=== PATIENT | male | born 1965 | race Caucasian/White ===

== ENCOUNTER 2019-10-25 08:38 | Outpatient (CLI) | payer BC, SELFPAY ==
--- NOTE | 2019-10-25 09:00 | EST_ITS ---
Patient Info Name: Boris Bautista Age: 54 years : 1965 Gender: Male Ht: 65 in Wt: 170 lbs BSA: 1.90 m2 Exam Date: 10/25/2019 9:09 AM Exam Location: [facility] Room: stress lab Patient Status: Outpatient Admit Date: 10/25/2019 Staff Ordering Physician: Pan Purcell DO Medical Office Technologist: Cuong Márquez RDCS, RT Attending Provider: PAN PURCELL Referring Physician: Ham BROWNING; Exercise Technologist: Cuong Márquez RDCS, RT Exercise Physician: Pan Purcell DO Exam Type: CA stress echo Study Info Indications R07.89 - Other chest pain Treadmill exercise stress echocardiogram is performed. Summary 1. 1. Negative Aryan exercise stress test for ischemic ST changes by ECG criteria. 2. 2. Good functional capacity, achieving 12 METs of workload. 3. 3. Appropriate HR response to exercise. 4. 4. Appropriate HR recovery at 1 minute post exercise. 5. 5. Negative stress echocardiogram for ischemia by wall motion analysis. 6. 6. Patient informed of the above results. Stress Echo Findings Left Ventricle Appropriate increase in LV endocardial thickening with systole. Appropriate augmentation of contractility with systole. No wall motion abnormality. Left Ventricle Normal LV systolic function, no wall motion abnormality. Protocol: Aryan Stress ECG Details Stage: REST Duration (min): 0 min : 11 sec Speed (mph): 0.0 Grade (%): 0 HR (bpm): --- SBP (mmHg): --- DBP (mmHg): --- METS: --- Stage: REST Duration (min): 15 min : 52 sec Speed (mph): 0.0 Grade (%): 0 HR (bpm): 60 SBP (mmHg): 109 DBP (mmHg): 78 METS: --- Stage: STAGE 1 Duration (min): 1 min : 0 sec Speed (mph): 1.7 Grade (%): 10 HR (bpm): 80 SBP (mmHg): 109 DBP (mmHg): 78 METS: --- Stage: STAGE 1 Duration (min): 2 min : 0 sec Speed (mph): 1.7 Grade (%): 10 HR (bpm): 81 SBP (mmHg): 109 DBP (mmHg): 78 METS: --- Stage: STAGE 1 Duration (min): 3 min : 0 sec Speed (mph): 1.7 Grade (%): 10 HR (bpm): 80 SBP (mmHg): 114 DBP (mmHg): 79 METS: --- Stage: STAGE 2 Duration (min): 1 min : 0 sec Speed (mph): 2.5 Grade (%): 12 HR (bpm): 95 SBP (mmHg): 114 DBP (mmHg): 79 METS: --- Stage: STAGE 2 Duration (min): 2 min : 0 sec Speed (mph): 2.5 Grade (%): 12 HR (bpm): 96 SBP (mmHg): 128 DBP (mmHg): 81 METS: --- Stage: STAGE 2 Duration (min): 3 min : 0 sec Speed (mph): 2.5 Grade (%): 12 HR (bpm): 95 SBP (mmHg): 128 DBP (mmHg): 81 METS: --- Stage: STAGE 3 Duration (min): 1 min : 0 sec Speed (mph): 3.4 Grade (%): 14 HR (bpm): 113 SBP (mmHg): 149 DBP (mmHg): 75 METS: --- Stage: STAGE 3 Duration (min): 2 min : 0 sec Speed (mph): 3.4 Grade (%): 14 HR (bpm): 123 SBP (mmHg): 149 DBP (mmHg): 75 METS: --- Stage: STAGE 3 Duration (min): 3 min : 0 sec Speed (mph): 3.4 Grade
== END 2019-10-25 08:39 | disposition home or self-care (01) ==
PROVIDERS: PCP Internal Medicine; Visit Provider Internal Medicine Cardiovascular Disease
DX: R07.89 Other chest pain (principal)
CPT/HCPCS: 93351

== ENCOUNTER → 2021-08-08 00:18 | Outpatient (CLI) | payer BC, SELFPAY ==
[2021-08-08 13:27] LABS: SARS-CoV-2 RNA PCR Negative
== END ==
PROVIDERS: PCP Nurse Practitioner Family; Visit Provider Internal Medicine Gastroenterology
DX: Z01.812 Encounter for preprocedural laboratory examination (principal); Z20.822 Contact with and (suspected) exposure to COVID-19
CPT/HCPCS: C9803; U0003; U0005

== ENCOUNTER 2021-08-11 01:19 | Day surgery (SDC) | payer BC, SELFPAY ==
[2021-08-03 14:25] VITALS: BMI 28.2
[2021-08-11 09:40] VITALS: BP 122/87; PULSE 65; RESP 20; TEMP 36.1; O2SAT 100; BMI 27.2
[2021-08-11] MEDS: LACTATED RINGERS 1,000 ML 150 ML IV CONT (09:53)
--- NOTE | 2021-08-11 10:05 | WPDGICN ---
Assessment and Plan Assessment and plan (1) LUQ pain: Code(s): R10.12 - Left upper quadrant pain Status: Acute Assessment and Plan: Patient has ongoing vague left upper quadrant pain for this reason EGD will be performed further recommendations will be given after endoscopy. (2) Abnormal CT scan, colon: Code(s): R93.3 - Abnormal findings on diagnostic imaging of other parts of digestive tract Status: Acute Assessment and Plan: CT scan suggests thickening of the right colon and sigmoid colon for this reason colonoscopy will be performed. Also to have evaluate for potential etiologies to his discomfort. Further recommendations will be given after endoscopy. GI Consult Note Consult date/time: 08/11/21 10:05 HPI: Boris Bautista is a 56 year old male Presents for GI endoscopy. Patient has rather vague left side left upper quadrant discomfort. This has been present since before April. He states that is somewhat difficult to describe. Not particularly burning. It does not change with eating. Not related to bowel habits. CT scan performed in April revealed some questionable thickening of the right colon as well as sigmoid colon patient presents today for endoscopy because of ongoing discomfort. States that may have eased somewhat over the last 2 months. He denies any weight loss or bleeding. Review of Systems Review of Systems: All systems reviewed & are unremarkable except as noted in HPI and below PMFSH Past Medical History Medical History Hypothyroidism, unspecified IBS (irritable bowel syndrome) Lateral epicondylitis of right elbow Mixed hyperlipidemia Right elbow pain Skin lesion Vision abnormalities Surgical History Surgical History History of arthroscopic surgery of shoulder 2009 History of laparoscopic cholecystectomy 2011 History of nasal surgery 1983 Family History Family History Mother Cerebrovascular accident Father Family history of heart disease in male family member before age 55 Family history of cardiovascular disease Unknown Cerebrovascular accident HLD (hyperlipidemia) Social History Social History Tobacco type: cigarettes Second hand tobacco smoke exposure: No Alcohol intake: current Drinks per week: 2 Alcohol use details: beer Substance use: never Substance use type: does not use Living arrangements: with family Spiritual care concerns: No Meds Home Medications and Allergies Home Medications Medication Instructions Recorded Confirmed Type levothyroxine 137 mcg tablet 137 mcg PO DAILY #90 tablet 03/21/20 08/03/21 Rx Allergies Allergy/AdvReac Type Severity Reaction Status Date / Time No Known Allergies Allergy Verified 08/11/21 09:39 Vital Signs Vital Signs - 24 hr 08/11/21 09:40 Temperature 97.0 F L Pulse Rate 65 Respiratory Rate 20 Blood Pressure 122/87 Pulse Oximetry 100 Exam Narrative: Physical exam reveals patient to be alert. Vital signs stable. HEENT exam is unremarkable. Patient is anicteric. Lungs are clear to auscultation and percussion. Heart is without murmur or extra sounds. Abdominal exam bowel sounds are present soft nontender with no organomegaly. Digital external rectal exam is normal.
--- NOTE | 2021-08-11 10:30 | P.PNAN_ITS ---
Anes - Initial Pre Proc Eval Procedure: Operation Date: 08/11/21 11:00 Proposed Procedures p Esophagogastroduodenoscopy & Screening Colonoscopy - Shahbaz Ariza MD Date/Time: 08/11/21 10:30 Surgeon: Shahbaz Ariza MD Pre Op Diagnosis: neoplasm screening, left upper quadrant pain Patient Data Age: 56 Gender: M Height: 1.65 m Weight: 74.2 kg Last Vital Signs Temp 97.0 F L 08/11/21 09:40 Pulse 65 08/11/21 09:40 Resp 20 08/11/21 09:40 BP 122/87 08/11/21 09:40 Pulse Ox 100 08/11/21 09:40 Allergies Allergy/AdvReac Type Severity Reaction Status Date / Time No Known Allergies Allergy Verified 08/11/21 09:39 Home Medications Medication Instructions Recorded Confirmed Type levothyroxine 137 mcg tablet 137 mcg PO DAILY #90 tablet 03/21/20 08/03/21 Rx Patient hx anesthesia problems: none Family hx anesthesia problems: none Results Review: All pre-operative results and documents have been reviewed as part of the pre-operative evaluation. COUNT INCLUDES THE [facility] Past Medical History Medical History Hypothyroidism, unspecified IBS (irritable bowel syndrome) Lateral epicondylitis of right elbow Mixed hyperlipidemia Right elbow pain Skin lesion Vision abnormalities Surgical History Surgical History History of arthroscopic surgery of shoulder 2009 History of laparoscopic cholecystectomy 2011 History of nasal surgery 1983 Family History Family History Mother Cerebrovascular accident Father Family history of heart disease in male family member before age 55 Family history of cardiovascular disease Unknown Cerebrovascular accident HLD (hyperlipidemia) Social History Social History Tobacco type: cigarettes Second hand tobacco smoke exposure: No Alcohol intake: current Drinks per week: 2 Alcohol use details: beer Substance use: never Substance use type: does not use Living arrangements: with family Spiritual care concerns: No Anes - Eval Final PreProcedure Day of Procedure 08/11/21 10:30 Patient weight: normal Heart: regular rate and rhythm Lungs: clear to auscultation Airway: Mallampati scale class II Neurological: alert and oriented Last oral intake: >/= 8 hours ASA classification: II Emergent: no Anesthetic plan: proceed Anesthesia type and monitoring: general GIVS and standard monitoring Results Review: All pre-operative results and documents have been reviewed as part of the pre-operative evaluation. Informed Consent: The patient's anesthetic plan and its attendant risks and benefits were discussed with the patient/family/POA. Questions were solicited and answers provided to the satisfaction of the patient/family/POA.
[2021-08-11] MEDS: BENZOCAINE (*SP) 60 ML SPRAY CAN (HURRICAINE) 1 SPRAY MUCOUS MEM (10:37)
--- NOTE | 2021-08-11 10:48 | SUR.OPER ---
EGD ENDED AT 1041, COLONOSCOPY BEGAN AT 1047.
[2021-08-11 11:01] VITALS: BP 101/66; PULSE 75; RESP 14; O2SAT 97
[2021-08-11 11:11] VITALS: BP 94/68; PULSE 60; RESP 12; O2SAT 100
[2021-08-11 11:21] VITALS: BP 118/87; PULSE 56; RESP 15; O2SAT 100
== END 2021-08-11 11:28 | disposition home or self-care (01) ==
PROVIDERS: PCP Nurse Practitioner Family; Visit Provider Internal Medicine Gastroenterology
PROC: 0DJ08ZZ Inspection of Upper Intestinal Tract, Via Natural or Artificial Opening Endoscopic (ICD-10-PCS; CPT 43235; principal; 2021-08-11 11:00)
DX: Z12.11 Encounter for screening for malignant neoplasm of colon (principal); R10.12 Left upper quadrant pain; R93.3 Abnormal findings on diagnostic imaging of other parts of digestive tract; E03.9 Hypothyroidism, unspecified
CPT/HCPCS: 45378; 43239; 87081; J2704; J7120

== ENCOUNTER → 2021-09-01 15:36 | Outpatient (REF) | payer BC, SELFPAY | LOC: ANHLAB 15:36 | PROVIDERS: PCP Nurse Practitioner Family; Visit Provider Nurse Practitioner | DX: L98.9 Disorder of the skin and subcutaneous tissue, unspecified (principal) | CPT/HCPCS: 88305 ==

== ENCOUNTER → 2021-11-05 13:52 | Outpatient (REF) | payer BC, SELFPAY | LOC: ANHLAB 13:52 | PROVIDERS: PCP Nurse Practitioner Family; Visit Provider Surgery Plastic and Reconstructive Surgery | DX: D49.2 Neoplasm of unspecified behavior of bone, soft tissue, and skin (principal) | CPT/HCPCS: 88305 ==

== ENCOUNTER 2021-11-20 07:55 | Outpatient (CLI) | payer BC, SELFPAY ==
--- NOTE | ~2021-11-20 | MR_ITS ---
EXAMINATION: MR elbow RT wo con DATE: 11/20/2021 08:51 INDICATION: Right elbow pain TECHNIQUE: Magnetic resonance imaging (MRI) of the right elbow was performed without intravenous cont rast. Sequences included coronal, axial, and sagittal PD-weighted FS FSE and coronal, axial, and sagi ttal PD-weighted FSE. COMPARISON: None FINDINGS: Osseous/other: Normal alignment. Normal marrow signal with no marrow edema, fracture, osteochondral lesion or abnor mal marrow replacing process. Tendons: Triceps and brachialis tendons are normal. Moderate tendinopathy at the distal biceps brachii tendon without tear. Mild tendinopathy of the common extensor tendon wad with partial thickness avulsion and approximately 1 cm distal retraction of a central portion of the tendon. The torn portion of the ten don constitutes approximately one third of the cross-sectional area. The common flexor tendon wad is normal. Ligaments: The medial and lateral collateral ligament complexes are normal. Cubital tunnel: Cubital tunnel is unremarkable with normal signal and caliber of the ulnar nerve. Fluid: Physiologic amount of fluid the elbow joint. IMPRESSION: 1. Mild tendinopathy and partial thickness avulsion of a portion of the common extensor tendon wad. 2. Moderate tendinopathy without discrete tear at the insertion of the biceps brachii tendon. Reviewed, dictated and finalized at location D. IMPRESSION: 1. Mild tendinopathy and partial thickness avulsion of a portion of the common extensor tendon wad. 2. Moderate tendinopathy without discrete tear at the insertion of the biceps b rachii tendon.
== END 2021-11-20 07:56 | disposition home or self-care (01) ==
PROVIDERS: PCP Nurse Practitioner Family; Visit Provider Nurse Practitioner Family
DX: M25.521 Pain in right elbow (principal)
CPT/HCPCS: 73221

== ENCOUNTER 2021-12-17 01:22 | Day surgery (SDC) | payer BC, SELFPAY ==
[2021-12-16 08:19] VITALS: BMI 27.4
--- NOTE | 2021-12-16 08:27 | PC.NURSE ---
Report to the Outpatient Waiting Room, entrance under the green pavilion located off [facility], at time 0600 on date 12/17/21. OR Time: 0730. - You and your visitor will be asked a series of questions to screen for COVID 19 for your protection. - Only one visitor is allowed at this time. - The patient visitor is requested to leave or wait in car when not with patient. - A mask is required within the hospital. Patients may have clear liquids (water, carbonated beverages, clear teas, apple juice) until 3 hours prior to surgery with a maximum of 20 ounces. - No food from midnight until time of surgery Take the following medications with a SIP of water the morning of surgery: LEVOTHYROXINE Medications to discontinue per physician: MELOXICAM Date to take last dose: CALL DR. PICHARDO Please no make-up, nail chilean, hairspray, perfume, deodorant, or body powder the day of surgery. No jewelry (including any body piercings) or valuables the day of surgery, leave them at home. Please take a shower or bath the night before, or the morning of, surgery with an antibacterial soap. Wear comfortable, loose fitting clothing. - Jewelry must be removed prior to entering the operating room. Rings and piercings that are not removed may be cut off. - The hospital will not accept responsibility for valuables. - Please leave all valuables, including medications, at home the day of surgery. If you are going home after surgery, a licensed emergency detail driver must drive you home. - NO public transportation without another adult. - We recommend that an adult stay with you for 24 hours following discharge. - We also recommend that you do not drive, make important decision, drink alcoholic beverages, or take any drugs that were not prescribed by your health care provider for at least 24 hours after your discharge time. Follow any additional instructions given to you from your surgeon. If you or anyone in your household have experienced Covid symptoms in the past week, please notify your surgeon or the nurse liaison at the phone number below for possible testing. Telephone instructions given to PT - CHARISSE PLEITEZ and asked if any additional questions and then verbalized understanding. Patient advised to call surgeon office or pre surgery nurse liaison [phone] if any additional questions.
--- NOTE | 2021-12-16 13:42 | WPDANESEPPF ---
Anes - Initial Pre Proc Eval Procedure: Operation Date: 12/17/21 07:30 Proposed Procedures p Right Elbow Lateral Release - Jono Calderón MD Date/Time: 12/16/21 13:42 Surgeon: Jono Calderón MD Pre Op Diagnosis: right elbow lateral epicondylitis Patient Data Age: 56 Gender: M Height: 1.65 m Weight: 74.84 kg Allergies Allergy/AdvReac Type Severity Reaction Status Date / Time No Known Allergies Allergy Verified 12/17/21 06:30 Home Medications Medication Instructions Recorded Confirmed Type levothyroxine 137 mcg tablet 137 mcg PO DAILY #90 tabs 03/21/20 12/17/21 Rx meloxicam 15 mg tablet 15 mg PO DAILY PRN Pain 12/16/21 12/17/21 History Patient hx anesthesia problems: none Family hx anesthesia problems: none Results Review: All pre-operative results and documents have been reviewed as part of the pre-operative evaluation. [facility] Past Medical History Medical History Biceps tendinopathy Hypothyroidism, unspecified IBS (irritable bowel syndrome) Lateral epicondylitis of right elbow Mixed hyperlipidemia Partial tear of common extensor tendon of elbow Right elbow pain Skin lesion Vision abnormalities Surgical History Surgical History History of arthroscopic surgery of shoulder 2009 History of laparoscopic cholecystectomy 2011 History of nasal surgery 1982 Family History Family History Mother Cerebrovascular accident Father Family history of heart disease in male family member before age 55 Family history of cardiovascular disease Unknown Cerebrovascular accident HLD (hyperlipidemia) Social History Social History Smoking status: Former smoker Tobacco type: cigarettes Second hand tobacco smoke exposure: No Smoking end date: 05/30/99 Additional smoking assessment comments: NOT AN EVERYDAY SMOKER Alcohol intake: current Drinks per week: 5 Alcohol use details: beer Substance use: never Substance use type: does not use Living arrangements: with family Spiritual care concerns: No Anes - Eval Final PreProcedure Day of Procedure 12/16/21 13:42 Patient weight: normal Heart: regular rate and rhythm Lungs: clear to auscultation Airway: Mallampati scale class II Neurological: alert and oriented Last oral intake: >/= 8 hours ASA classification: II Emergent: no Anesthetic plan: proceed Anesthesia type and monitoring: general LMA and standard monitoring Results Review: All pre-operative results and documents have been reviewed as part of the pre-operative evaluation. Informed Consent: The patient's anesthetic plan and its attendant risks and benefits were discussed with the patient/family/POA. Questions were solicited and answers provided to the satisfaction of the patient/family/POA.
[2021-12-17] VITALS (9 sets, daily range): BP systolic 112–140; BP diastolic 84–93; PULSE 50–62; RESP 10–16; TEMP 36.1; O2SAT 98–100
[2021-12-17] MEDS: LACTATED RINGERS 1,000 ML 30 ML IV CONT (06:46)
[2021-12-17] MEDS: ACETAMINOPHEN 500 MG TABLET 1000 MG PO (06:47)
[2021-12-17] MEDS: KETOROLAC 15 MG/ML VIAL (*BKC) IV PUSH (06:49)
--- NOTE | 2021-12-17 06:51 | WPDHPUPDATE1 ---
History and Physical Update Update Date/Time: 12/17/21 06:51 History and Physical has been reviewed, including an updated exam of the patient. There are NO changes in the patient's condition. Risks, benefits, and alternatives have been discussed and questions answered. Patient agrees to proceed with procedure.
[2021-12-17] MEDS: ceFAZolin 2 GM/D5W 50 ML 2 GM/50 ML BAG IVPB (07:27)
[2021-12-17] MEDS: BUPIVACAINE HCL 0.5% PF 30 ML VIAL INFILTRATE (07:52)
--- NOTE | 2021-12-17 08:31 | W.PM.PROC2 ---
Procedure Note - Detailed Date of Procedure 12/17/21 Pre-op Diagnosis right elbow lateral epicondylitis Post-op Diagnosis Same Procedure Performed Debridement right lateral elbow with release. 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 MRI findings show partial tear of the ECRB and degenerative changes of the lateral epicondyle. Failed conservative treatment with therapy, bracing and injections. Presents for operative treatment. Findings Partial tear of the ECRB right lateral elbow. Description of Procedure Patient identified in the preoperative holding. Informed consent given. Operative extremity marked. Patient received intravenous antibiotics. Patient brought to the operating room where underwent general anesthetic by anesthesia team. Positioned supine on operating room table. Time-out performed confirming the patient, site of the surgery and the plan. Right elbow prepped and draped usual sterile surgical fashion using ChloraPrep skin solution. Hand and arm exsanguinated with Esmarch bandage and arm tourniquet inflated to 250 mmHg. Local anesthetic with 0.5% Marcaine plain. Anatomic landmarks mapped out. Oblique incision made over the lateral epicondyle 15 blade knife. Hemostasis controlled electrocautery. Fascia was incised in line with skin incision which allowed visualization of the origin of the extensor tendons on the lateral elbow. ECRL was released and retracted anteriorly. The ECRB was visualized and noted to be partially torn. Complete release off of the lateral epicondyle was then performed with a 15 blade knife. Degenerative portion of the tendon was sharply excised. Lateral epicondyle was then debrided with a rongeur. Thorough irrigation with saline solution. Fascia was then repaired with 0 Vicryl interrupted suture. Subcutaneous tissue repaired with 3-0 Monocryl interrupted suture and skin repaired with a running 3-0 Monocryl subcuticular stitch. Tourniquet released. Sterile dressing applied. The patient was then woken from anesthesia, extubated and taken to the recovery room in stable condition. All sponge, needle, instrument counts were correct at the end of the case. Estimated Blood Loss 5 Tourniquet Time 31 Drains No Packing No Pathology None sent Complications No immediate complications Condition Stable Disposition PACU
== END 2021-12-17 09:50 | disposition home or self-care (01) ==
PROVIDERS: PCP Nurse Practitioner Family; Visit Provider Orthopaedic Surgery
PROC: (CPT 24359; principal; 2021-12-17 07:30)
DX: M77.12 Lateral epicondylitis, left elbow (principal); E03.9 Hypothyroidism, unspecified; Z87.891 Personal history of nicotine dependence
CPT/HCPCS: 24359; A4565; A9270; J0690; J1100; J1885; J2250; J2405; J2704; J3010; J7120